=== PATIENT | male | born 1950 | race Caucasian/White ===

== ENCOUNTER 2017-06-19 09:31 | Inpatient (IN) | payer BC, OTHER ==
[2017-06-11 14:41] VITALS: BMI 27.0
--- NOTE | 2017-06-11 15:39 | PAT Medication Instructions ---
Service Date Jun 11, 2017. Current Home Medication List Acetaminophen (Tylenol), Unknown Dose PO UD PRN for Pain Amlodipine (Norvasc), 5 MG PO QAM Amphetamine-Dextroamphetamine 10MG (Adderall 10MG), 1-2 TAB PO UD B-Complex Vitamins (Vitamin B Complex), 1 TAB PO QAM Citalopram Hydrobromide (Celexa), 10 MG PO HS Citalopram Hydrobromide (Celexa), 20 MG PO QAM Clonazepam (Klonopin), 1 MG PO QAM Dicyclomine Hcl (Dicyclomine Hcl), 1 CAP PO BID Duloxetine HCl (Cymbalta), 1 CAP PO QPM Duloxetine Hcl (Cymbalta), 60 MG PO QAM Hydrocodone/Acetaminophen 5MG/325MG ([place] 5MG/325MG), 1 TABLET PO UD PRN for Pain Ibuprofen (Motrin), Unknown Dose PO UD PRN for Pain Lisinopril (Zestril), Unknown Dose PO QAM Lorazepam (Lorazepam), Unknown Dose UD PRN for ANXIETY Lurasidone Hcl (Latuda), 10 MG PO QAM Naproxen (Naprosyn), 500 MG PO PRN PRN for Pain Omeprazole (Prilosec), Unknown Dose PO QAM Ondansetron (Ondansetron HCl), 1 TAB PO UD PRN for Diarrhea Simvastatin (Simvastatin), 1 TAB PO HS Tamsulosin Hcl (Flomax), 0.4 MG PO QAM [Vitamin B Infusion], 1 DOSE INJ UD Medication Instructions For Your Scheduled Surgery -Contact your surgeon for instructions for: Ibuprofen (Motrin), Unknown Dose PO UD PRN for Pain Naproxen (Naprosyn), 500 MG PO PRN PRN for Pain -Continue as directed: [Vitamin B Infusion], 1 DOSE INJ UD - Hold the following medications the morning of surgery: Lisinopril (Zestril), Unknown Dose PO QAM B-Complex Vitamins (Vitamin B Complex), 1 TAB PO QAM Amphetamine-Dextroamphetamine 10MG (Adderall 10MG), 1-2 TAB PO UD Dicyclomine Hcl (Dicyclomine Hcl), 1 CAP PO BID - Take the following medications the morning of surgery with a sip of water: Tamsulosin Hcl (Flomax), 0.4 MG PO QAM Omeprazole (Prilosec), Unknown Dose PO QAM Lurasidone Hcl (Latuda), 10 MG PO QAM Lorazepam (Lorazepam), Unknown Dose UD PRN for ANXIETY (if needed) Ondansetron (Ondansetron HCl), 1 TAB PO UD PRN for Diarrhea (if needed) Amlodipine (Norvasc), 5 MG PO QAM Duloxetine Hcl (Cymbalta), 60 MG PO QAM Citalopram Hydrobromide (Celexa), 20 MG PO QAM Clonazepam (Klonopin), 1 MG PO QAM Hydrocodone/Acetaminophen 5MG/325MG ([place] 5MG/325MG), 1 TABLET PO UD PRN for Pain (if needed, can be taken up to four hours before surgery) Acetaminophen (Tylenol), Unknown Dose PO UD PRN for Pain (if needed, can be taken up to four hours before surgery) - Take the following medications as scheduled the night before surgery: Ondansetron (Ondansetron HCl), 1 TAB PO UD PRN for Diarrhea (if needed) Simvastatin (Simvastatin), 1 TAB PO HS Citalopram Hydrobromide (Celexa), 10 MG PO HS Duloxetine HCl (Cymbalta), 1 CAP PO QPM Dicyclomine Hcl (Dicyclomine Hcl), 1 CAP PO BID Hydrocodone/Acetaminophen 5MG/325MG ([place]aw 5MG/325MG), 1 TABLET PO UD PRN for Pain (if needed) Acetaminophen (Tylenol), Unknown Dose PO UD PRN for Pain (if needed) Amphetamine-Dextroamphetamine 10MG (Adderall 10MG), 1-2 TAB PO UD If you have any questions please call us at [phone] or [phone] or [phone]
[2017-06-11 16:38] LABS: BASO % 0.1 %; BASO ABS # 0.01 K/uL (0-0.2); EOS % 0.7 %; EOS ABS # 0.08 K/uL (0-0.5); HEMATOCRIT 43.7 % (42-52); HEMOGLOBIN 15.8 g/dL (14.0-18.0); IG# 0.05 K/uL (0.00-0.02); LYMPH % 12.1 %; LYMPH ABS # 1.34 K/uL (1.2-3.4); MEAN CELL VOLUME 90.7 fL (80-100); MEAN CORPUSCULAR HEMOGLOBIN 32.8 pg (25-34); MEAN CORPUSCULAR HGB CONC 36.2 g/dl (32-36); MEAN PLATELET VOLUME 8.3 fL (7.4-10.4); MONO % 7.8 %; MONO ABS # 0.87 K/uL (0.11-0.59); NEUT % 78.8 %; NEUT ABS # 8.74 K/uL (1.4-6.5); PLATELET COUNT 322 K/uL (130-400); RED CELL DISTRIBUTION WIDTH CV 13.5 % (11.5-14.5); RED CELL DISTRIBUTION WIDTH SD 44.7 fL (36.4-46.3); WHITE BLOOD COUNT 11.09 K/uL (4.8-10.8)
[2017-06-11 16:46] LABS: CREATININE 0.74 mg/dl (0.60-1.40); POTASSIUM 4.2 mmol/L (3.5-5.1)
--- NOTE | 2017-06-11 16:52 | DIAGNOSTIC IMAGING REPORT ---
CHEST 2 VIEWS ROUTINE CLINICAL HISTORY: Preoperative chest COMPARISON STUDY: No previous studies for comparison. FINDINGS: The cardiac and mediastinal contours are normal. There is no evidence of focal pulmonary consolidation. There is no evidence of failure. No pleural effusions are visualized.[ The patient appears mildly hyperinflated. IMPRESSION: No active disease in the chest. Electronically signed by: Laci Hernández M.D. 06/11/2017 4:51 PM Dictated Date/Time: 06/11/2017 4:50 PM
[2017-06-19] VITALS (7 sets, daily range): BP systolic 106–143; BP diastolic 70–80; PULSE 82–98; TEMP 36.5–36.8; O2SAT 91–97; Ht 165.1 cm; Wt 74.4 kg
[~2017-06-19] VITALS: Ht 165.1 cm; Wt 74.4 kg
[~2017-06-19 09:31] MED LIST: ACET-1256 PO; AMLO-110 PO; AMPH10TA2 PO; ATV1; B-COTAB18 PO; CEFAZOLIN 1000MG IV PUSH 7.5 ML IV SCH; CITA10TA8 PO; CITA20TA9 PO; CLON1TAB3 PO; DICY10CA12 PO; DULO-24 PO; DULO60CA44 PO; HYDR-5688 PO; IBUP-1450 PO; LACTATED RINGER'S 1000ML 1,000 ML IV SCH; LISI-461 PO; LURA40TA PO; NAPR-1169 PO; ONDA4TAB9 PO; PRLSR20 PO; TAMS0.4C38 PO; ZCR20 PO; [UNRECOGNIZED DRUG - OTHER] INJ
[2017-06-19] MEDS ORDERED: MIDAZOLAM HCL 1 MG/ML 2ML VIAL ONE (09:47)
[2017-06-19] MEDS ORDERED: FENTANYL CITRATE INJ 50 MCG/1 ML 2 ML VIAL ONE ×5 (09:47→13:41)
--- NOTE | 2017-06-19 10:14 | History & Physical Bridge Note ---
H&P Re-Evaluation Bridge Note: I have examined the patient, reviewed the History & Physical and in the interval since the performance of the History & Physical I have noted the following changes of clinical significance: No changes noted
--- NOTE | 2017-06-19 10:15 | History and Physical ---
History & Physical Date Jun 19, 2017. Chief Complaint Back and leg pain History of Present Illness The patient is a 66 year old male with complaints of back and leg pain Additional History Hepatic Disease: No Endocrine Disorder: No Kidney Disease: No Hypertension: Yes Heart Disease: No Bleeding Tendencies: No Infectious Diseases: No Allergies Coded Allergies: No Known Allergies (Unverified , 06/19/17) Home Medications Scheduled Amlodipine (Norvasc), 5 MG PO QAM Amphetamine-Dextroamphetamine 10MG (Adderall 10MG), 1-2 TAB PO UD B-Complex Vitamins (Vitamin B Complex), 1 TAB PO QAM Citalopram Hydrobromide (Celexa), 10 MG PO HS Citalopram Hydrobromide (Celexa), 20 MG PO QAM Clonazepam (Klonopin), 1 MG PO QAM Dicyclomine Hcl (Dicyclomine Hcl), 1 CAP PO BID Duloxetine HCl (Cymbalta), 1 CAP PO QPM Duloxetine Hcl (Cymbalta), 60 MG PO QAM Lisinopril (Zestril), Unknown Dose PO QAM Lurasidone Hcl (Latuda), 10 MG PO QAM Omeprazole (Prilosec), Unknown Dose PO QAM Simvastatin (Simvastatin), 1 TAB PO HS Tamsulosin Hcl (Flomax), 0.4 MG PO QAM [Vitamin B Infusion], 1 DOSE INJ UD Scheduled PRN Acetaminophen (Tylenol), Unknown Dose PO UD PRN for Pain Hydrocodone/Acetaminophen 5MG/325MG ([place] 5MG/325MG), 1 TABLET PO UD PRN for Pain Ibuprofen (Motrin), Unknown Dose PO UD PRN for Pain Lorazepam (Lorazepam), Unknown Dose UD PRN for ANXIETY Naproxen (Naprosyn), 500 MG PO PRN PRN for Pain Ondansetron (Ondansetron HCl), 1 TAB PO UD PRN for Diarrhea Physical Examination Skin: warm/dry, no rash Eyes: normal inspection, EOMI, sclerae normal ENT: normal ENT inspection, pharynx normal Head: normocephalic, atraumatic Neck: supple, no adenopathy, trachea midline Respiratory/Chest: lungs clear, normal breath sounds, no respiratory distress Cardiovascular: regular rate, rhythm, no edema, no murmur Abdomen / GI: normal bowel sounds, non tender Back: normal inspection Extremities: normal inspection, normal range of motion Neurologic/Psych: no motor/sensory deficits, alert, normal reflexes, oriented x 3 Diagnosis Lumbar spinal stenosis Plan of Treatment L3 to S1 decompression and fusion
[2017-06-19] MEDS ORDERED: BUPIVACAINE/EPINEPHRINE 0.5% MPF 1:200,000 30 ML VIAL ONE (10:26)
[2017-06-19] MEDS ORDERED: BACITRACIN 50000 UNIT VIAL ONE (10:26)
[2017-06-19] MEDS ORDERED: HYDROmorphone INJ 2 MG/ML SYR/VIAL ONE ×3 (11:00→13:40)
[2017-06-19] MEDS ORDERED: ALBUMIN HUMAN 5% 12.5 GM/250 ML VIAL IV ONE (11:43)
[2017-06-19] MEDS ORDERED: FENTANYL CITRATE INJ 50 MCG/1 ML 2 ML VIAL IV PRN (11:45)
[2017-06-19] MEDS ORDERED: PROMETHAZINE HCL INJ 6.25 MG in SODIUM CHLORIDE 0.9% 50ML 50 ML IV PRN (11:45)
[2017-06-19] MEDS ORDERED: EpHEDrine SULFATE INJ 50 MG/ML AMP IV PRN (11:45)
[2017-06-19] MEDS ORDERED: HYDROmorphone INJ 1 MG/ML SYR IV PRN (11:45)
[2017-06-19] MEDS ORDERED: ATROPINE SULFATE 0.1 MG/ML 5ML SYR IV PRN (11:45)
[2017-06-19] MEDS ORDERED: ONDANSETRON INJ 2 MG/ML 2 ML VIAL IV PRN ×2 (11:45→13:45)
[2017-06-19] MEDS ORDERED: FLOSEAL HEMOSTATIC MATRIX 10ML TOP ONE (13:23)
[2017-06-19] MEDS ORDERED: SODIUM CHLORIDE 0.9% 1000ML 1,000 ML IV SCH (13:31)
[2017-06-19] MEDS: SODIUM CHLORIDE 0.9% 1000ML 1,000 ML IV SCH (13:31)
--- NOTE | 2017-06-19 13:31 | [facility] Operative Report ---
Operative Report Operative Date Jun 19, 2017. Pre-Operative Diagnosis Lumbar spinal stenosis Post-Operative Diagnosis Lumbar spinal stenosis Procedure(s) Performed #1 lumbar decompression medial facetectomies foraminotomies L2-3 L3 4 L4 5 L5-S1. #2 posterior spinal fusion L3 4 L4 5 L5-S1. #3 placement of posterior segmental instrumentation L3 to S1. #4 interbody fusion L5-S1. #5 placed the peek cage 10 x 22 mm L5-S1. #6 placement of locally harvested morcellized autograft in the posterior lateral gutters. #7 placement he's got sponge, master graft in the posterior lateral gutters and osteal and bone graft in the interbody space. Surgeon Dr. Devon Hartley Speech Language Assistant Surgeon(s) Nicole Damon PA-C Estimated Blood Loss 450 ml Findings Severe spinal stenosis with hemorrhagic facet cyst Specimens No pathology specimens per surgeon Anesthesia Type General Description of Procedure Patient was met with preoperatively case discussed all questions addressed. After informed consent obtained patient was taken to the operative suite underwent intubation and placed in a prone position on the Carlos table on top Anselmo frame. All bony prominences were well-padded the eyes were inspected to ensure no external pressure placed upon them. This point the lumbar spine was prepped and draped in the normal sterile fashion. Sharp dissection with the assistance of Bovie cautery was performed out to and exposing the lamina and transverse processes of L3 L4 L5 and a circular bilaterally. From a caudal to cephalad fashion a complete laminectomy of L5 L4 L3 and partial laminectomy of L2 was performed addressing severe spinal stenosis. This included massive hemorrhagic facet cyst at 51 on the right as well as severe foraminal disease. After this complete pedicle screws were placed in L3-L4 L5-S1 levels bilaterally with the assistance of fluoroscopy and the properly sized derick placed. Through a transforaminal approach on the right a complete discectomy of L5-S1 was performed and placed created to subcortical bleeding bone and a 10 x 22 mm peek cage filled with osteal bone graft In position. Rods were then locked in the final position bilaterally. A cross-link was locked into position. The transverse processes of L3 L4-L5 and S1 levels were burred to subcortical bleeding bone. Infuse collagen sponge master graft locally harvested morselized autograph was placed in the posterior lateral gutters. 15 round NICKIE drain inserted. Incision was then closed with 1 Vicryl in the fascia 2 -0 Vicryl subcutaneous tensely 4-0 Monocryl for final skin closure Steri-Strips dressings placed. Patient was taken to the PACU stable condition. Please note Nicole Damon was present for the entire procedure involved in patient positioning complex portions of the surgery and final skin closure. I attest to the content of the Intraoperative Record and any orders documented therein. Any exceptions are noted below.
[2017-06-19] MEDS ORDERED: ONDANSETRON INJ 2 MG/ML 2 ML VIAL ONE ×2 (13:39→13:45)
[2017-06-19] MEDS ORDERED: LIDOCAINE HCL 2% 2 ML VIAL (20MG/ML) ONE (13:39)
[2017-06-19] MEDS ORDERED: ROCURONIUM BROMIDE 10 MG/ML 5 ML VIAL IV ONE (13:39)
[2017-06-19] MEDS ORDERED: PROPOFOL IV EMULSION 10 MG/ML 20 ML VIAL IV ONE (13:39)
[2017-06-19] MEDS ORDERED: DEXAMETHASONE SOD INJ 4 MG/ML VIAL ONE (13:39)
[2017-06-19] MEDS ORDERED: DO NOT ADMINISTER PNEUMOCOCCAL VACCINE PRN (13:45)
[2017-06-19] MEDS ORDERED: BISACODYL 10 MG SUPP PR PRN (13:45)
[2017-06-19] MEDS ORDERED: ALUMINUM/MAGNESIUM SUSP 30 ML UDC PO PRN (13:45)
[2017-06-19] MEDS ORDERED: PROMETHAZINE HCL INJ 12.5 MG in SODIUM CHLORIDE 0.9% 50ML 50 ML IV PRN (13:45)
[2017-06-19] MEDS ORDERED: FAMOTIDINE 20 MG TAB PO PRN (13:45)
[2017-06-19] MEDS ORDERED: ACETAMINOPHEN IV 100 ML IV PRN (13:45)
[2017-06-19] MEDS ORDERED: HYDROmorphone HCL 0.5MG/ML 50 ML CASSETTE IV PRN (13:45)
[2017-06-19] MEDS ORDERED: LORAZEPAM 0.5 MG TAB PO PRN (13:45)
[2017-06-19] MEDS ORDERED: NEOSTIGMINE METHYLSULFATE 1 MG/ML 10ML VIAL ONE (13:45)
[2017-06-19] MEDS ORDERED: GLYCOPYRROLATE INJ 0.2 MG/ML VIAL ONE (13:45)
[2017-06-19] MEDS ORDERED: DO NOT ADMINISTER FLU VACCINE PRN (13:45)
[2017-06-19] MEDS ORDERED: ACETAMINOPHEN 500 MG TAB PO PRN (13:45)
[2017-06-19] MEDS ORDERED: NALOXONE HCL 0.4 MG/1 ML VIAL/CARP IV PRN ×2 (13:45)
[2017-06-19] MEDS ORDERED: SOD PHOSPHATE/SOD BIPHOSPHATE ENEMA 132 ML BTL PR PRN (13:45)
[2017-06-19] MEDS ORDERED: EpHEDrine SULFATE 50MG/5ML SYR ONE (13:45)
[2017-06-19] MEDS ORDERED: hydrOXYzine HCL 25 MG TAB PO PRN (13:45)
[2017-06-19] MEDS ORDERED: KETOROLAC TROMETHAMINE 30 MG/ML VIAL ONE (13:45)
[2017-06-19] MEDS ORDERED: MAGNESIUM HYDROXIDE SUSP 30 ML UDC PO PRN (13:45)
[2017-06-19] MEDS ORDERED: LORAZEPAM INJ 0.5 MG in SYRINGE 0 ML IV PRN (13:45)
[2017-06-19] MEDS ORDERED: CEFAZOLIN IV 2,000 MG in DEXTROSE 5% 50ML 50 ML IV SCH (13:45)
[2017-06-19] MEDS ORDERED: METOCLOPRAMIDE HCL INJ 5 MG/ML 2 ML VIAL IV PRN (13:45)
--- NOTE | 2017-06-19 13:48 | DIAGNOSTIC IMAGING REPORT ---
LUMBAR SPINE 2 OR 3 VIEW CLINICAL HISTORY: 66 years-old Male presenting with L3-S1 DECOMP AND FUSION. TECHNIQUE: 3 fluoroscopic spot image(s) obtained as part of an intraoperative procedure. COMPARISON: None. FINDINGS/IMPRESSION: Postsurgical changes of L3-S1 posterior fusion and laminectomies. Interbody spacer noted at L5-S1. Normal lordosis though there is significant levocurvature of the lumbar spine centered at L3-4. Please see surgical report for further details. Fluoroscopy dosage (mGy): 25.15. Fluoroscopy time: 32.9 seconds. Number of fluoroscopic spot images: 3. Electronically signed by: Emre Lopez M.D. 06/19/2017 1:47 PM Dictated Date/Time: 06/19/2017 1:45 PM
[2017-06-19] MEDS ORDERED: HYDROmorphone HCL 0.5MG/ML 50 ML CASSETTE ONE (14:05)
--- NOTE | 2017-06-19 16:09 | Anesthesiology Progress Note ---
Anesthesia Post Op Note Date & Time Jun 19, 2017 at 16:08 Vital Signs Pain Intensity: 0 Vital Signs Past 12 Hours Date Time Temp Pulse Resp B/P (MAP) Pulse Ox O2 Delivery O2 Flow Rate FiO2 06/19/17 16:03 36.8 93 18 121/74 (90) 93 Nasal Cannula 06/19/17 15:15 36.2 96 17 119/64 93 Nasal Cannula 4 06/19/17 15:05 88 15 107/72 92 Nasal Cannula 4 06/19/17 14:55 89 14 96/72 (80) 92 Nasal Cannula 4 06/19/17 14:45 95 12 107/66 93 Nasal Cannula 4 06/19/17 14:35 85 13 106/59 97 Oxymask 6 06/19/17 14:25 83 13 105/65 97 Oxymask 10 06/19/17 14:15 84 13 91/63 (76) 98 Oxymask 10 06/19/17 14:05 36.4 87 14 120/71 98 Oxymask 10 06/19/17 09:59 36.6 82 20 143/79 97 Room Air Notes Mental Status: alert / awake / arousable, participated in evaluation Pt Amnestic to Procedure: Yes Nausea / Vomiting: adequately controlled Pain: adequately controlled Airway Patency, RR, SpO2: stable & adequate BP & HR: stable & adequate Hydration State: stable & adequate Anesthetic Complications: no major complications apparent
[2017-06-19] MEDS ORDERED: NURSING DECISION MEDICATION ORDER SCH (18:15)
[2017-06-19] MEDS: CEFAZOLIN IV 2,000 MG in SYRINGE 0 ML IV SCH (18:46)
[2017-06-19] MEDS ORDERED: LURA1TAB PO (19:49)
[2017-06-19] MEDS ORDERED: LISI-461 PO (19:49)
[2017-06-19] MEDS ORDERED: OMEP20CA9 PO (19:49)
[2017-06-19] MEDS ORDERED: GABAPENTIN 600 MG TAB PO SCH (20:00)
[2017-06-19] MEDS ORDERED: LORAZEPAM 1 MG TAB PO PRN (20:00)
[2017-06-19] MEDS ORDERED: GABAPENTIN 1200MG LOADING DOSE PO ONE (20:30)
[2017-06-19] MEDS: DOCUSATE SODIUM/SENNA 50/8.6MG TAB PO SCH (20:44)
[2017-06-19] MEDS: SIMVASTATIN 20 MG TAB PO SCH (20:44)
[2017-06-19] MEDS: CITALOPRAM 20 MG TAB PO SCH (20:45)
[2017-06-19] MEDS: DULOXETINE HCL 20 MG CAP PO SCH (20:45)
[2017-06-19] MEDS ORDERED: DICYCLOMINE HCL 10 MG CAP PO SCH (21:00)
[2017-06-19] MEDS ORDERED: MULTI-VITAMIN INFUSION INJ 10 ML, THIAMINE HCL INJ 100 MG, FoLIC ACID INJ 1 MG in SODIU... IV ONE (21:15)
--- NOTE | 2017-06-19 22:46 | Medical Consult ---
Consultation Date of Consultation: Jun 19, 2017. Attending Physician: Devon Hartley D.O. Reason for Consultation: Medical management History of Present Illness Pt is 66 y/o M with PMH anxiety, depression, bipolar, ADHD, GERD, BPH, HTN, dysplipidemia, ETOH use is seen in medical consultation s/p lumbar decompression and spinal fusion L2-S1 by Dr Hartley today for spinal stenosis. Pt states some back pain post op. Has Panda in place. No BM since surgery, reports has had some flatulence. Denies any numbness or tingling of extremities. Is ready to get out of bed. Pt follows with psychiatrist in [place] and states mood been stable past couple of months. Reports chronic anxiety, but doesn't feel worse and not feeling overly anxious at this time. Denies suicidal ideations. Hx hepatitis C antibody and followed with GI and reports completing thiamine deficiency treatment. Pt drinks 6 beers daily. Last drink last night. He ate dinner tonight and denies any N/V. Denies any tremors, HEALY, palpitations, fever/chills, diaphoresis, HEALY, dizziness, syncope, vision changes, neck pain, CP, SOB, orthopnea, cough, choking, abdominal pain, extremity edema, rashes, seizure like activity, hallucinations. Past Medical/Surgical History Medical Problems: (1) ADHD Status: Chronic (2) Anxiety Status: Chronic (3) Bipolar disorder Status: Chronic (4) BPH (benign prostatic hyperplasia) Status: Chronic (5) Depression Status: Chronic (6) Dyslipidemia Status: Chronic (7) GERD (gastroesophageal reflux disease) Status: Chronic (8) HTN (hypertension) Status: Chronic Surgical Problems: (1) Hx of carpal tunnel repair Status: Resolved (2) Hx of rotator cuff surgery Status: Resolved Family History Depression Diabetes mellitus FH: CAD (coronary artery disease) Social History Smoking Status: Current Every Day Smoker (1ppd day currently, previous 2ppd x 40 years) Smokeless Tobacco Use: No Alcohol Use: 6 beers daily Drug Use: marijuana Marital Status: in relationship Housing Status: lives with significant other Allergies Coded Allergies: No Known Allergies (Unverified , 06/19/17) Current Inpatient Medications Current Inpatient Medications Medications (Trade) Dose Ordered Sig/Shakira Route Start Time Stop Time Status Last Admin Dose Admin Promethazine HCl 12.5 mg/Sodium Chloride 50.5 ml @ 202 mls/hr Q6H PRN IV 06/19/17 13:45 07/19/17 13:44 Ondansetron HCl (Zofran Inj) 4 mg Q6H PRN IV 06/19/17 13:45 07/19/17 13:44 Metoclopramide HCl (Reglan Inj) 10 mg Q6H PRN IV 06/19/17 13:45 07/19/17 13:44 Lorazepam (Ativan Tab) 0.5 mg Q8H PRN PO 06/19/17 13:45 07/19/17 13:44 Lorazepam 0.5 mg/ Syringe 0.25 ml @ 1 mls/min Q8H PRN IV 06/19/17 13:45 07/19/17 13:44 Pneumococcal Polysaccharide Vaccine 1 ea PRN PRN N/A 06/19/17 13:45 07/19/17 13:44 Influenza Virus Vacc Triv Types A&B 1 ea PRN PRN N/A 06/19/17 13:45 07/19/17 13:44 Polyethylene (Miralax Powder Packet) 17 gm Q6 PO 06/21/17 06:00 07/21/17 05:59 Bisacodyl (Dulcolax Supp) 10 mg DAILY PRN [place] 06/19/17 13:45 07/19/17 13:44 Magnesium Hydroxide (Milk Of Magnesia Susp) 30 ml DAILY PRN PO 06/19/17 13:45 07/19/17 13:44 Hydromorphone HCl (Dilaudid Inj) 0.5-1mg prn moder... Q3H PRN IV 06/20/17 06:00 07/04/17 05:59 Oxycodone HCl (Roxicodone Immediate Rel Tab) 5-10mg prn moderate to sev... Q4H PRN PO 06/20/17 06:00 07/04/17 05:59 Sodium Chloride 1,000 ml @ 150 mls/hr Q6H40M IV 06/19/17 13:31 07/19/17 13:30 06/19/17 18:00 150 MLS/HR Acetaminophen (Tylenol Tab) 1,000 mg Q8H PRN PO 06/19/17 13:45 07/19/17 13:44 Acetaminophen 100 ml @ 400 mls/hr Q8H PRN IV 06/19/17 13:45 07/19/17 13:44 Naloxone HCl (Narcan Inj) 0.1 mg Q5M PRN IV 06/19/17 13:45 07/19/17 13:44 Senna/Docusate Sodium (Senokot S Tab) 2 tab HS PO 06/19/17 21:00 07/19/17 20:59 Sodium Biphosphate/ Sodium Phosphate (Fleet Enema) 132 ml ONE PRN [place] 06/19/17 13:45 07/19/17 13:44 Hydroxyzine HCl (Vistaril Tab) 25 mg Q8H PRN PO 06/19/17 13:45 07/19/17 13:44 Al Hydroxide/Mg Hydroxide (Maalox Susp) 30 ml Q6H PRN PO 06/19/17 13:45 07/19/17 13:44 Famotidine (Pepcid Tab) 20 mg Q12 PRN PO 06/19/17 13:45 07/19/17 13:44 Diphenhydramine HCl (Benadryl Cap) 25 mg Q6H PRN PO 06/19/17 13:45 07/19/17 13:44 Miscellaneous Information (Discontinue MANAGER GENERATION) 1 ea TODAY@0600 ONCE N/A 06/20/17 06:00 06/20/17 06:01 Naloxone HCl (Narcan Inj) 0.1 mg Q5M PRN IV 06/19/17 13:45 06/20/17 06:00 Hydromorphone HCl (Dilaudid Commercial Floor Covering Installer) 25 mg PRN PRN IV 06/19/17 13:45 06/20/17 06:00 Sodium Chloride 1,000 ml @ 15 mls/hr Q24H IV 06/19/17 13:31 06/20/17 06:00 Amlodipine Besylate (Norvasc Tab) 5 mg QAM PO 06/20/17 09:00 07/20/17 08:59 Citalopram Hydrobromide (celeXA TAB) 10 mg HS PO 06/19/17 21:00 07/19/17 20:59 Citalopram Hydrobromide (celeXA TAB) 20 mg QAM PO 06/20/17 09:00 07/20/17 08:59 Clonazepam (Klonopin Tab) 1 mg QAM PO 06/20/17 09:00 07/20/17 08:59 Dicyclomine HCl (Bentyl Cap) 10 mg BID PO 06/19/17 21:00 07/19/17 20:59 Duloxetine HCl (Cymbalta Cap) 20 mg QPM PO 06/19/17 21:00 07/19/17 20:59 Duloxetine HCl (Cymbalta Cap) 60 mg QAM PO 06/20/17 09:00 07/20/17 08:59 Lurasidone HCl (Latuda Tab) 10 mg QAM PO 06/20/17 09:00 07/20/17 08:59 Simvastatin (Zocor Tab) 20 mg HS PO 06/19/17 21:00 07/19/17 20:59 Tamsulosin HCl (Flomax Cap) 0.4 mg QAM PO 06/20/17 09:00 07/20/17 08:59 Cefazolin Sodium 2000 mg/Syringe 15 ml @ 3.75 mls/ min Q8H IV 06/19/17 19:00 06/20/17 03:03 06/19/17 18:46 3.75 MLS/MIN Lorazepam (Ativan Tab) 1 mg ONE PRN PO 06/19/17 20:00 Gabapentin (Neurontin Tab) 1,200 mg TODAY@2030 ONCE PO 06/19/17 20:30 06/19/17 20:31 Gabapentin (Neurontin Tab) 600 mg Q6H PO 06/20/17 02:00 06/20/17 08:01 Gabapentin (Neurontin Tab) 600 mg Q8H PO 06/20/17 16:00 06/21/17 08:01 Gabapentin (Neurontin Tab) 600 mg Q12H PO 06/21/17 20:00 06/22/17 08:01 Gabapentin (Neurontin Tab) 600 mg Q24H PO 06/22/17 20:00 06/22/17 20:01 Review of Systems See HPI for pertinent positives & negatives. All other systems reviewed and were otherwise negative Physical Exam Date Time Temp Pulse Resp B/P (MAP) Pulse Ox O2 Delivery O2 Flow Rate FiO2 06/19/17 18:38 36.7 98 18 127/75 (92) 91 Nasal Cannula 2.0 06/19/17 17:35 36.6 90 14 106/70 (82) 91 Nasal Cannula 4.0 06/19/17 16:35 36.5 87 18 110/73 (85) 94 Nasal Cannula 06/19/17 16:03 36.8 93 18 121/74 (90) 93 Nasal Cannula 06/19/17 15:35 36.6 98 14 114/75 (88) 93 Nasal Cannula 4.0 06/19/17 15:35 93 Nasal Cannula 4.0 06/19/17 15:35 93 Nasal Cannula 4.0 06/19/17 15:15 36.2 96 17 119/64 93 Nasal Cannula 4 06/19/17 15:05 88 15 107/72 92 Nasal Cannula 4 06/19/17 14:55 89 14 96/72 (80) 92 Nasal Cannula 4 06/19/17 14:45 95 12 107/66 93 Nasal Cannula 4 06/19/17 14:35 85 13 106/59 97 Oxymask 6 06/19/17 14:25 83 13 105/65 97 Oxymask 10 06/19/17 14:15 84 13 91/63 (76) 98 Oxymask 10 06/19/17 14:05 36.4 87 14 120/71 98 Oxymask 10 06/19/17 09:59 36.6 82 20 143/79 97 Room Air General Appearance: WD/WN, no apparent distress (sitting upright in bed) Head: normocephalic, atraumatic Eyes: normal inspection, PERRL, EOMI, sclerae normal ENT: hearing grossly normal, pharynx normal, + pertinent finding (mucous membranes moist) Neck: supple, no JVD, trachea midline Respiratory/Chest: chest non-tender, lungs clear, no respiratory distress Cardiovascular: regular rate, rhythm, no murmur, normal peripheral pulses Abdomen/GI: normal bowel sounds, non tender, soft Back: + pertinent finding (dressing in place without bloody discharge noted) Extremities/Musculoskelatal: normal capillary refill, no pedal edema, non- tender, + pertinent finding (pedal pushes and pulls intact bilaterally, sensation to light touch intact. pt with SCDs on) Neurologic/Psych: alert, oriented x 3, + pertinent finding (pt joking around, appears to be pleasant at this time) Skin: warm/dry Assessment & Plan Pt post op day# 0 S/P Lumbar decompression and fusion L2-S1 by Dr Hartley Pt doing well with pain control post-op. -pain management per ortho -wound management per ortho -PT/OT as appropriate -DVT prophylaxis per ortho -incentive spirometry -monitor H&H for acute blood loss anemia ETOH Use Drinks 6 beers daily, last drink last evening. No signs withdrawal at this time -banana bag -ETOH withdrawal protocol -close monitoring Anxiety/Depression/Bipolar/ADHD Pt follows with psychiatrist. Stable at this time -continue Celexa, Cymbalta, Latuda GERD -continue PPI -continue Bentyl prn HTN stable at this time -continue lisinopril, amlodipine Hyperlipidemia -continue simvastatin BPH -continue flomax DVT Prophylaxis -per ortho Disposition admit med/surg Full Code as per discussion with pt Follows with Dr Constanza Arteaga for routine care Pt was seen with Dr Tinoco. See addendum ATTENDING ADDENDUM ; pt seen and examined , care co cordinated with Sarah Valderrama PA-C 66 yo M with hx of ETOH abuse, chronic back pain , underwent multi level spinal decompression and fusion surgery by Dr Hartley recovering well post op denies of any discomfort pt drinks ~6 pk beer a day , past drink was yesterday started with ETOH withdrawal protocol with gabapentin , lorazepam IV Banana bag monitor for sign of withdrawal/DT at present vitals remains stable low threshold to tx to PCU or higher level of care with any S/S of active withdrawal ( tachycardia /Tremor /anxiety /agitation or hypertensive episode ) Hyponatremia : possible due to chronic ETOH abuse IVF with NSS after Banana bag infused repeat BMP in AM pt will benefit with ETOH rehab , social service consulted Socorro Tinoco MD Additional Copies To Constanza Arteaga D.O.
[2017-06-20] VITALS (7 sets, daily range): BP systolic 105–121; BP diastolic 61–78; PULSE 66–78; TEMP 36.4–36.8; O2SAT 91–98
[2017-06-20] MEDS: SODIUM CHLORIDE 0.9% 1000ML 1,000 ML IV SCH ×4 (01:02→21:30)
[2017-06-20] MEDS: GABAPENTIN 600MG Q6H DOSE PO SCH ×2 (01:59→07:59)
[2017-06-20] MEDS: CEFAZOLIN IV 2,000 MG in SYRINGE 0 ML IV SCH (02:49)
[2017-06-20 05:33] LABS: EOS % 0.1 %; EOS ABS # 0.01 K/uL (0-0.5); HEMATOCRIT 32.7 % (42-52); HEMOGLOBIN 11.3 g/dL (14.0-18.0); IG# 0.03 K/uL (0.00-0.02); LYMPH % 6.8 %; LYMPH ABS # 0.82 K/uL (1.2-3.4); MEAN CELL VOLUME 92.4 fL (80-100); MEAN CORPUSCULAR HEMOGLOBIN 31.9 pg (25-34); MEAN CORPUSCULAR HGB CONC 34.6 g/dl (32-36); MONO % 6.6 %; MONO ABS # 0.79 K/uL (0.11-0.59); NEUT % 86.3 %; NEUT ABS # 10.36 K/uL (1.4-6.5); PLATELET COUNT 230 K/uL (130-400); RED CELL DISTRIBUTION WIDTH CV 13.5 % (11.5-14.5); RED CELL DISTRIBUTION WIDTH SD 45.3 fL (36.4-46.3); WHITE BLOOD COUNT 12.01 K/uL (4.8-10.8)
[2017-06-20 05:59] LABS: ALT/SGPT 27 U/L (12-78); AST/SGOT 25 U/L (15-37); BLOOD UREA NITROGEN 7 mg/dl (7-18); CALCIUM 7.6 mg/dl (8.5-10.1); CARBON DIOXIDE 27 mmol/L (21-32); GLUCOSE 115 mg/dl (70-99); LIPASE 111 U/L (73-393); POTASSIUM 4.3 mmol/L (3.5-5.1); SODIUM 135 mmol/L (136-145)
[2017-06-20] MEDS ORDERED: DC PCA ONE (06:00)
[2017-06-20] MEDS ORDERED: HYDROmorphone INJ 0.5 MG/0.5 ML SYR IV PRN (06:00)
[2017-06-20 06:04] LABS: ALKALINE PHOSPHATASE 47 U/L (45-117); CHOLESTEROL 130 mg/dl (0-200); LDL CHOLESTEROL CALCULATED 71 mg/dl; TOTAL PROTEIN 5.6 gm/dl (6.4-8.2)
--- NOTE | 2017-06-20 07:53 | Clinical Documentation Query ---
BRANDO Ram : CLINICAL DOCUMENTATION QUERY Patient is a 66 year old male who on 06/19 underwent posterior lumbar decompression and fusion. Preoperative H&H was 15.8 g/dl and 43.7%. POD #1, repeat values are 11.3 g/dl and 32.7%. Total blood loss to date equals 1,050 ml's. Additionally, net I/O is positive for approximately 2,000 ml's. He is being monitored with serial hematology and I/O including drain outputs. In your clinical opinion is this patient being managed for: ( ) Acute blood loss and hemodilutional anemia ( ) Not Agree ( ) Other explanation of clinical findings (Please Explain) ( ) Unable to determine (Please Define) ( ) Need to Discuss The medical record reflects the following clinical findings, treatment, and risk factors. Clinical Indicators: As above Treatment: He is being monitored with serial hematology and I/O including drain outputs. Risk Factors: Acute perioperative blood losses and IVF administration Please clarify and document your clinical opinion in the progress notes and discharge summary. Terms such as "probable", "suspected", "likely", "questionable", "possible", or "still to be ruled out" are acceptable. IF IN AGREEMENT, YOU MUST DOCUMENT ABOVE DIAGNOSTIC STATEMENT IN DAILY PROGRESS NOTES AND DISCHARGE SUMMARY. This document is not part of the patient's record. Thank You, Jesús Livingston RN [phone]
[2017-06-20] MEDS: TAMSULOSIN HCL 0.4 MG CAP PO SCH (07:59)
[2017-06-20] MEDS: DULOXETINE HCL 60 MG CAP PO SCH (08:00)
[2017-06-20] MEDS: CITALOPRAM 20 MG TAB PO SCH ×2 (08:00→21:42)
[2017-06-20] MEDS: LISINOPRIL 10 MG TAB PO SCH (08:00)
[2017-06-20] MEDS: AMLODIPINE BESYLATE 5 MG TAB PO SCH (08:01)
[2017-06-20] MEDS: PANTOprazole SOD 40 MG TAB PO SCH (08:01)
[2017-06-20] MEDS: LURASIDONE HCL 40 MG TAB PO SCH (08:03)
[2017-06-20] MEDS: CLONAZEPAM 1 MG TAB PO SCH (08:09)
[2017-06-20] MEDS: OXYCODONE HCL IR 5 MG TAB (IMMEDIATE RELEASE) PO PRN ×4 (08:10→23:44)
[2017-06-20] MEDS ORDERED: LURASIDONE HCL 40 MG TAB PO SCH (09:00)
[2017-06-20] MEDS ORDERED: RXC5 PO (09:05)
--- NOTE | 2017-06-20 09:06 | Discharge Instructions ---
Discharge Instructions Date of Service Jun 20, 2017. Admission Reason for Admission: Spinal Stenosis Discharge Discharge Diagnosis / Problem: lumbar stenosis Discharge Goals Goal(s): Improve function Activity Recommendations Activity Limitations: per Instructions/Follow-up section . Instructions / Follow-Up Instructions / Follow-Up ACTIVITY RECOMMENDATIONS: SELF CARE INSTRUCTIONS AFTER THORACIC/LUMBAR FUSIONS 1. You may walk to your tolerance. It is good exercise for your legs and back. Expect some back and intermittent leg aches and pains. 2. You may perform "counter-top" level activities (make a sandwich, maricarmen with a project, etc.). 3. No bending or lifting of more than 10 pounds or back twisting of any nature (roll like a log when turning in bed). 4. You may ride in a car for 20-30 minutes at a time. No driving until after your first visit with your doctor. 5. Frequent changes of position and restricting sitting to 30 minutes at a time will help limit the amount of back spasms and stiffness you may experience. 6. You may discontinue the use of ambulatory aids (cane, crutches, etc.) once your strength and confidence allow. 7. You may rubber tubing backer the shower and let water strike your incision when you arrive home at least once daily. Do not take a tub bath, sit in a hot tub or go into a swimming pool until after your first recheck in the office. SPECIAL CARE INSTRUCTIONS: VERY IMPORTANT TO READ AND REVIEW A. Your surgical incision has been closed with a cosmetic suture under the skin that will dissolve in about 6 weeks. In 14 days, you can use a pair of clean scissors and cut the suture that is left outside of the skin at the ends of your incision. 1. The small skin tapes can be removed 7 days after surgery if they have not fallen off by that point. 2. You may keep the wound open to air as much as possible to promote healing after post-op day number 5 unless told otherwise by your doctor. 3. If you think the wound looks like it is becoming infected (redness or worsening drainage) and/or you are experiencing fever, chill or worsening back pain and muscle spasms, contact the office so that we may evaluate you as soon as possible. B. Complications are uncommon, but please contact us if you have any signs or symptoms of: 1. wound infection (fever higher than 102.5 degrees F, redness, separation of wound, drainage, or increasing pain from the incision) 2. blood clots in legs (pain, swelling, redness and warmth in legs) 3. urinary tract infection (fever higher than 102.5 degrees F, burning upon urination or increased frequency of urination) 4. nerve problems (inability to walk on your toes or heels, numbness, loss of bowel or bladder control) 5. any other symptoms that concern you C. Please call the office at if you have any concerns or questions about your operation or recovery. D. No smoking! Smoking drastically decreases the chance of a solid fusion. E. Do not take any anti-inflammatory medications (Indocin, Advil, Motrin, Aspirin, Naprosyn, etc.) as these may inhibit the chance of a solid fusion. Tylenol is okay to take for pain. MANAGING PAIN AFTER SPINAL SURGERY 1. Narcotic medication is intended for short-term use and will be provided for surgical pain. Surgical pain usually lasts for a period of 4-6 weeks. Narcotic medication includes Percocet, Vicodin, Darvocet, Tylenol #3 or Lortab. 2. Longer-term pain is more appropriately treated with non-narcotic medication such as Tylenol ES. 3. Muscle spasm is not appropriately treated with narcotics. Muscle relaxers such as Soma, Flexeril or Skelaxin can be used along with Tylenol ES. 4. Remember that we all live with some "aches and pains". This is not unusual or uncommon after an injury or as we get older. a. Back pain is expected and may include muscle spasms for 4 to 6 weeks after surgery. The pain should gradually improve. If the pain worsens for no apparent reason, please contact the office. b. Intermittent leg pain may also be experienced and should not be concerned about unless it worsens for no apparent reason. If so, please contact the office. 5. We will provide appropriate medication within the normal guidelines of their prescribed use. We will also be very cautious and aware of potential abuse and extended duration of patients' medication needs. a. Pain medications are for your comfort and to assist with sleep and rest so that the tissue can heal. They are not provided in order to return to normal activity and should not be used through the day. To do so or worsening pain at night can result from ongoing tissue damage and development of tolerance to the prescribed medicine. 6. Please allow 2-3 days to process refills. Prescriptions will not be mailed but must be picked up at the office. FOLLOW UP VISIT: Keep your scheduled follow-up appointment. Any questions, please call the office at . Current Hospital Diet Patient's current hospital diet: Regular Diet Discharge Diet Recommended Diet: Regular Diet Procedures Procedures Performed: #1 lumbar decompression medial facetectomies foraminotomies L2-3 L3 4 L4 5 L5-S1. #2 posterior spinal fusion L3 4 L4 5 L5-S1. #3 placement of posterior segmental instrumentation L3 to S1. #4 interbody fusion L5-S1. #5 placed the peek cage 10 x 22 mm L5-S1. #6 placement of locally harvested morcellized autograft in the posterior lateral gutters. #7 placement he's got sponge, master graft in the posterior lateral gutters and osteal and bone graft in the interbody space. Pending Studies Studies pending at discharge: no Laboratory Results Lipid Panel Test 06/20/17 05:04 Range/Units Triglycerides Level 72 0-150 mg/dl Cholesterol Level 130 0-200 mg/dl HDL Cholesterol 45 mg/dl Cholesterol/HDL Ratio 2.9 LDL Cholesterol, Calculated 71 mg/dl Medical Emergencies . Who to Call and When: Medical Emergencies: If at any time you feel your situation is an emergency, please call 911 immediately. . Non-Emergent Contact Non-Emergency issues call your: Primary Care Provider . "Provider Documentation" section prepared by Devon Hartley. . VTE Core Measure Inpt VTE Proph given/why not?: Krys Pearson, SCD's
--- NOTE | 2017-06-20 10:06 | Anesthesiology Progress Note ---
Anesthesia Post Op Note Date & Time Jun 20, 2017 at 10:06 Vital Signs Vital Signs Past 12 Hours Date Time Temp Pulse Resp B/P (MAP) Pulse Ox O2 Delivery O2 Flow Rate FiO2 06/20/17 07:20 Room Air 06/20/17 07:11 36.4 66 18 107/68 (81) 91 Room Air 06/20/17 06:00 94 Room Air 06/20/17 03:20 36.5 72 16 121/74 (90) 98 Nasal Cannula 2.0 06/20/17 00:10 Room Air 06/19/17 23:10 36.6 89 16 130/80 (97) 94 Room Air Notes Mental Status: alert / awake / arousable, participated in evaluation Pt Amnestic to Procedure: Yes Nausea / Vomiting: adequately controlled Pain: adequately controlled Airway Patency, RR, SpO2: stable & adequate BP & HR: stable & adequate Hydration State: stable & adequate Anesthetic Complications: no major complications apparent
--- NOTE | 2017-06-20 14:37 | Progress Note ---
Progress Note Date of Service Jun 20, 2017. Progress Note Patient is postop day #1. Back pain is controlled. Leg pain markedly improved. Vital signs stable. On exam he isn't chair at the bedside. Has good strength testing. Assessment status post lumbar decompression fusion. Plan at this time will continue physical therapy anticipate possible home tomorrow.
[2017-06-20] MEDS ORDERED: KETOROLAC TROMETHAMINE 15 MG/ML VIAL IV. PRN (14:45)
[2017-06-20] MEDS: GABAPENTIN 600MG Q8H DOSE PO SCH ×2 (15:27→23:44)
[2017-06-20] MEDS ORDERED: NURSING DECISION MEDICATION ORDER SCH (20:30)
--- NOTE | 2017-06-20 20:43 | Progress Note ---
Medicine Progress Note Date & Time of Visit: Jun 20, 2017 at 11:20 . Subjective Doing well postoperatively. No chest pain. No cough or dyspnea. No nausea or vomiting. Passing flatus, no stool. Panda removed this morning. No tremors, sweats, hallucinations. Postop pain well-controlled. . Objective Last 8 Hrs Date Time Temp Pulse Resp B/P (MAP) Pulse Ox O2 Delivery O2 Flow Rate FiO2 06/20/17 15:54 36.5 71 18 105/61 (76) 94 Room Air 06/20/17 15:30 94 Room Air Physical Exam: General- sitting in chair; no distress Lungs- clear to auscultation; no respiratory distress Cardiovascular- RRR; no murmur; no gallop; no JVD; no pretibial edema Abdomen- + bowel sounds, soft, nontender Extremities- no cyanosis; no calf tenderness Neuro- alert, oriented Skin- warm & dry . Laboratory Results: Last 24 Hours Test 06/20/17 01:27 06/20/17 05:04 Urine Opiates Screen POS Urine Methadone, Qualitative NEG Urine Barbiturates NEG Urine Phencyclidine (PCP) Level NEG Ur Amphetamine/Methamphetamine NEG MDMA (Ecstasy) Screen NEG Urine Benzodiazepines Screen POS Urine Cocaine Metabolite NEG Urine Marijuana (THC) POS White Blood Count 12.01 K/uL Red Blood Count 3.54 M/uL Hemoglobin 11.3 g/dL Hematocrit 32.7 % Mean Corpuscular Volume 92.4 fL Mean Corpuscular Hemoglobin 31.9 pg Mean Corpuscular Hemoglobin Concent 34.6 g/dl Platelet Count 230 K/uL Mean Platelet Volume 8.0 fL Neutrophils (%) (Auto) 86.3 % Lymphocytes (%) (Auto) 6.8 % Monocytes (%) (Auto) 6.6 % Eosinophils (%) (Auto) 0.1 % Basophils (%) (Auto) 0.0 % Neutrophils # (Auto) 10.36 K/uL Lymphocytes # (Auto) 0.82 K/uL Monocytes # (Auto) 0.79 K/uL Eosinophils # (Auto) 0.01 K/uL Basophils # (Auto) 0.00 K/uL RDW Standard Deviation 45.3 fL RDW Coefficient of Variation 13.5 % Immature Granulocyte % (Auto) 0.2 % Immature Granulocyte # (Auto) 0.03 K/uL Prothrombin Time 10.2 SECONDS Prothromb Time International Ratio 1.0 Sodium Level 135 mmol/L Potassium Level 4.3 mmol/L Chloride Level 104 mmol/L Carbon Dioxide Level 27 mmol/L Anion Gap 4.0 mmol/L Blood Urea Nitrogen 7 mg/dl Creatinine 0.70 mg/dl Est Creatinine Clear Calc Drug Dose 97.9 ml/min Estimated GFR () 114.0 Estimated GFR (Non- 98.3 BUN/Creatinine Ratio 10.2 Random Glucose 115 mg/dl Calcium Level 7.6 mg/dl Total Bilirubin 0.4 mg/dl Direct Bilirubin < 0.1 mg/dl Aspartate Amino Transf (AST/SGOT) 25 U/L Alanine Aminotransferase (ALT/SGPT) 27 U/L Alkaline Phosphatase 47 U/L Total Protein 5.6 gm/dl Albumin 3.0 gm/dl Triglycerides Level 72 mg/dl Cholesterol Level 130 mg/dl HDL Cholesterol 45 mg/dl LDL Cholesterol, Calculated 71 mg/dl VLDL Cholesterol, Calculated 14 mg/dl Cholesterol/HDL Ratio 2.9 Lipase 111 U/L Vitamin B12 Level 228 pg/mL Folate > 24.00 ng/mL Ethyl Alcohol mg/dL < 3.0 mg/dl Assessment & Plan S/P LUMBAR DECOMPRESSION / FUSION POD # 1 ALCOHOL CONSUMPTION Usually drinks 6 beers / day. No signs / symptoms of withdrawal. Continue gabapentin and lorazepam per protocol. BPH Continue tamsulosin. VTE PROPHYLAXIS Per Ortho protocol. Thank you for this consultation. We will follow the patient with you during their hospital stay. You can reach a member of the [facility] Medicine Team 04/12 via pager @ [phone]. You can reach me via cell @ [phone]. . Current Inpatient Medications: Current Inpatient Medications Medications (Trade) Dose Ordered Sig/Shakira Route Start Time Stop Time Status Last Admin Dose Admin Promethazine HCl 12.5 mg/Sodium Chloride 50.5 ml @ 202 mls/hr Q6H PRN IV 06/19/17 13:45 07/19/17 13:44 Ondansetron HCl (Zofran Inj) 4 mg Q6H PRN IV 06/19/17 13:45 07/19/17 13:44 Metoclopramide HCl (Reglan Inj) 10 mg Q6H PRN IV 06/19/17 13:45 07/19/17 13:44 Lorazepam (Ativan Tab) 0.5 mg Q8H PRN PO 06/19/17 13:45 07/19/17 13:44 Lorazepam 0.5 mg/ Syringe 0.25 ml @ 1 mls/min Q8H PRN IV 06/19/17 13:45 07/19/17 13:44 Pneumococcal Polysaccharide Vaccine 1 ea PRN PRN N/A 06/19/17 13:45 07/19/17 13:44 Influenza Virus Vacc Triv Types A&B 1 ea PRN PRN N/A 06/19/17 13:45 07/19/17 13:44 Polyethylene (Miralax Powder Packet) 17 gm Q6 PO 06/21/17 06:00 07/21/17 05:59 Bisacodyl (Dulcolax Supp) 10 mg DAILY PRN LA 06/19/17 13:45 07/19/17 13:44 Magnesium Hydroxide (Milk Of Magnesia Susp) 30 ml DAILY PRN PO 06/19/17 13:45 07/19/17 13:44 Hydromorphone HCl (Dilaudid Inj) 0.5-1mg prn moder... Q3H PRN IV 06/20/17 06:00 07/04/17 05:59 06/20/17 19:14 0.5 MG Oxycodone HCl (Roxicodone Immediate Rel Tab) 5-10mg prn moderate to sev... Q4H PRN PO 06/20/17 06:00 07/04/17 05:59 06/20/17 16:08 10 MG Acetaminophen (Tylenol Tab) 1,000 mg Q8H PRN PO 06/19/17 13:45 07/19/17 13:44 06/20/17 11:10 1,000 MG Acetaminophen 100 ml @ 400 mls/hr Q8H PRN IV 06/19/17 13:45 07/19/17 13:44 Naloxone HCl (Narcan Inj) 0.1 mg Q5M PRN IV 06/19/17 13:45 07/19/17 13:44 Senna/Docusate Sodium (Senokot S Tab) 2 tab HS PO 06/19/17 21:00 07/19/17 20:59 06/19/17 20:44 2 TAB Sodium Biphosphate/ Sodium Phosphate (Fleet Enema) 132 ml ONE PRN LA 06/19/17 13:45 07/19/17 13:44 Hydroxyzine HCl (Vistaril Tab) 25 mg Q8H PRN PO 06/19/17 13:45 07/19/17 13:44 Al Hydroxide/Mg Hydroxide (Maalox Susp) 30 ml Q6H PRN PO 06/19/17 13:45 07/19/17 13:44 Famotidine (Pepcid Tab) 20 mg Q12 PRN PO 06/19/17 13:45 07/19/17 13:44 Diphenhydramine HCl (Benadryl Cap) 25 mg Q6H PRN PO 06/19/17 13:45 07/19/17 13:44 Amlodipine Besylate (Norvasc Tab) 5 mg QAM PO 06/20/17 09:00 07/20/17 08:59 06/20/17 08:01 5 MG Citalopram Hydrobromide (celeXA TAB) 10 mg HS PO 06/19/17 21:00 07/19/17 20:59 06/19/17 20:45 10 MG Citalopram Hydrobromide (celeXA TAB) 20 mg QAM PO 06/20/17 09:00 07/20/17 08:59 06/20/17 08:00 20 MG Clonazepam (Klonopin Tab) 1 mg QAM PO 06/20/17 09:00 07/20/17 08:59 06/20/17 08:09 1 MG Duloxetine HCl (Cymbalta Cap) 20 mg QPM PO 06/19/17 21:00 07/19/17 20:59 06/19/17 20:45 20 MG Duloxetine HCl (Cymbalta Cap) 60 mg QAM PO 06/20/17 09:00 07/20/17 08:59 06/20/17 08:00 60 MG Simvastatin (Zocor Tab) 20 mg HS PO 06/19/17 21:00 07/19/17 20:59 06/19/17 20:44 20 MG Tamsulosin HCl (Flomax Cap) 0.4 mg QAM PO 06/20/17 09:00 07/20/17 08:59 06/20/17 07:59 0.4 MG Lorazepam (Ativan Tab) 1 mg ONE PRN PO 06/19/17 20:00 Gabapentin (Neurontin Tab) 600 mg Q8H PO 06/20/17 16:00 06/21/17 08:01 06/20/17 15:27 600 MG Gabapentin (Neurontin Tab) 600 mg Q12H PO 06/21/17 20:00 06/22/17 08:01 Gabapentin (Neurontin Tab) 600 mg Q24H PO 06/22/17 20:00 06/22/17 20:01 Lisinopril (Zestril Tab) 10 mg DAILY PO 06/20/17 09:00 07/20/17 08:59 06/20/17 08:00 10 MG Lurasidone HCl (Latuda Tab) 20 mg DAILY PO 06/20/17 09:00 07/20/17 08:59 06/20/17 08:03 20 MG Pantoprazole Sodium (Protonix Tab) 40 mg QAM PO 06/20/17 09:00 07/20/17 08:59 06/20/17 08:01 40 MG Sodium Chloride 1,000 ml @ 100 mls/hr Q10H IV 06/20/17 01:30 07/20/17 01:29 06/20/17 11:01 100 MLS/HR Ketorolac Tromethamine (Toradol Inj) 15 mg Q6H PRN IV. 06/20/17 14:45 06/25/17 14:44 Nicotine (Nicoderm Cq 21MG Patch) 1 patch QAM TD 06/21/17 09:00 07/21/17 08:59 Miscellaneous (Remove Nicoderm Patch) 1 ea HS N/A 06/20/17 23:00 07/20/17 22:59
[2017-06-20] MEDS: DULOXETINE HCL 20 MG CAP PO SCH (21:42)
[2017-06-20] MEDS: SIMVASTATIN 20 MG TAB PO SCH (21:42)
[2017-06-20] MEDS: DOCUSATE SODIUM/SENNA 50/8.6MG TAB PO SCH (21:42)
[2017-06-21 03:10] VITALS: BP 132/86; PULSE 83; TEMP 37; O2SAT 90
[2017-06-21] MEDS ORDERED: NURSING DECISION MEDICATION ORDER SCH (04:45)
[2017-06-21] MEDS: POLYETHYLENE (MIRALAX) 17 GM PACK PO SCH ×2 (05:41→13:31)
[2017-06-21] MEDS: OXYCODONE HCL IR 5 MG TAB (IMMEDIATE RELEASE) PO PRN ×2 (05:41→13:35)
[2017-06-21 06:57] VITALS: BP 123/73; PULSE 79; TEMP 36.8; O2SAT 90
[2017-06-21] MEDS: CLONAZEPAM 1 MG TAB PO SCH (07:34)
[2017-06-21] MEDS: PANTOprazole SOD 40 MG TAB PO SCH (07:35)
[2017-06-21] MEDS: TAMSULOSIN HCL 0.4 MG CAP PO SCH (07:35)
[2017-06-21] MEDS: LISINOPRIL 10 MG TAB PO SCH (07:35)
[2017-06-21] MEDS: DULOXETINE HCL 60 MG CAP PO SCH (07:35)
[2017-06-21] MEDS: AMLODIPINE BESYLATE 5 MG TAB PO SCH (07:35)
[2017-06-21] MEDS: GABAPENTIN 600MG Q8H DOSE PO SCH (07:36)
[2017-06-21] MEDS: LURASIDONE HCL 40 MG TAB PO SCH (07:36)
--- NOTE | 2017-06-21 07:53 | Discharge Summary ---
Orthopedic Discharge Summary Admission Date/Reason Jun 19, 2017 at 10:20 Spinal Stenosis. Discharge Date/Disposition Jun 21, 2017 Home Diagnosis Principal Diagnosis: lumbar spinal stenosis Procedure(s) Performed posterior lumbar decompression/fusion Medication Reconciliation New Medications: Oxycodone HCl (Oxycodone HCl) 5 Mg Tab 5-10 MG PO Q4H PRN for Moderate - severe pain for 30 Days, #60 TAB Continued Medications: Amlodipine (Norvasc) 5 Mg Tab 5 MG PO QAM, TAB Amphetamine-Dextroamphetamine 10MG (Adderall 10MG) 1 Tab Tab 1 TAB PO BID for 30 Days, #60 TAB USUALLY TAKES 0.5 TAB AT HS B-Complex Vitamins (Vitamin B Complex) 1 Tab Tab 1 TAB PO QAM Citalopram Hydrobromide (Celexa) 10 Mg Tab 10 MG PO HS, TAB Citalopram Hydrobromide (Celexa) 20 Mg Tab 20 MG PO QAM, TAB Clonazepam (Klonopin) 1 Mg Tab 1 MG PO QAM, TAB Dicyclomine Hcl (Dicyclomine Hcl) 10 Mg Cap 1 CAP PO Q6 PRN for Nausea for 30 Days, #120 CAP 3 Refills prn nausea or abdominal cramping Duloxetine HCl (Cymbalta) 20 Mg Cap 1 CAP PO QPM for 30 Days, CAP Duloxetine Hcl (Cymbalta) 60 Mg Cap 60 MG PO QAM, CAP Hydrocodone/Acetaminophen 5MG/325MG ([place] 5MG/325MG) Tab 1 TABLET PO Q6 PRN for Pain, TAB PRN PAIN Lisinopril (Lisinopril) 10 Mg Tab 1 TAB PO DAILY Lurasidone Hcl (Latuda) 20 Mg Tab 1 TAB PO DAILY Omeprazole (Prilosec) 20 Mg Cap 20 MG PO DAILY, CAP Simvastatin (Simvastatin) 20 Mg Tab 1 TAB PO HS Tamsulosin Hcl (Flomax) 0.4 Mg Cap 0.4 MG PO QAM, CAP [Vitamin B Infusion] () 1 DOSE INJ UD RECEIVES INFUSION FOR A VITAMIN B DEFICIENCY ONCE A MONTH - LAST INFUSION APPROX FEW WEEKS AGO Discontinued Medications: Naproxen (Naprosyn) 500 Mg Tab 500 MG PO BID PRN for Pain, TAB Admission Physical Exam As per Admitting History & Physical. Hospital Course pt had an uneventful hospital course. labs stable. progressed with physical therapy Discharge Instructions ACTIVITY RECOMMENDATIONS: SELF CARE INSTRUCTIONS AFTER THORACIC/LUMBAR FUSIONS 1. You may walk to your tolerance. It is good exercise for your legs and back. Expect some back and intermittent leg aches and pains. 2. You may perform "counter-top" level activities (make a sandwich, maricarmen with a project, etc.). 3. No bending or lifting of more than 10 pounds or back twisting of any nature (roll like a log when turning in bed). 4. You may ride in a car for 20-30 minutes at a time. No driving until after your first visit with your doctor. 5. Frequent changes of position and restricting sitting to 30 minutes at a time will help limit the amount of back spasms and stiffness you may experience. 6. You may discontinue the use of ambulatory aids (cane, crutches, etc.) once your strength and confidence allow. 7. You may air and hydronic balancing technician the shower and let water strike your incision when you arrive home at least once daily. Do not take a tub bath, sit in a hot tub or go into a swimming pool until after your first recheck in the office. SPECIAL CARE INSTRUCTIONS: VERY IMPORTANT TO READ AND REVIEW A. Your surgical incision has been closed with a cosmetic suture under the skin that will dissolve in about 6 weeks. In 14 days, you can use a pair of clean scissors and cut the suture that is left outside of the skin at the ends of your incision. 1. The small skin tapes can be removed 7 days after surgery if they have not fallen off by that point. 2. You may keep the wound open to air as much as possible to promote healing after post-op day number 5 unless told otherwise by your doctor. 3. If you think the wound looks like it is becoming infected (redness or worsening drainage) and/or you are experiencing fever, chill or worsening back pain and muscle spasms, contact the office so that we may evaluate you as soon as possible. B. Complications are uncommon, but please contact us if you have any signs or symptoms of: 1. wound infection (fever higher than 102.5 degrees F, redness, separation of wound, drainage, or increasing pain from the incision) 2. blood clots in legs (pain, swelling, redness and warmth in legs) 3. urinary tract infection (fever higher than 102.5 degrees F, burning upon urination or increased frequency of urination) 4. nerve problems (inability to walk on your toes or heels, numbness, loss of bowel or bladder control) 5. any other symptoms that concern you C. Please call the office at if you have any concerns or questions about your operation or recovery. D. No smoking! Smoking drastically decreases the chance of a solid fusion. E. Do not take any anti-inflammatory medications (Indocin, Advil, Motrin, Aspirin, Naprosyn, etc.) as these may inhibit the chance of a solid fusion. Tylenol is okay to take for pain. MANAGING PAIN AFTER SPINAL SURGERY 1. Narcotic medication is intended for short-term use and will be provided for surgical pain. Surgical pain usually lasts for a period of 4-6 weeks. Narcotic medication includes Percocet, Vicodin, Darvocet, Tylenol #3 or Lortab. 2. Longer-term pain is more appropriately treated with non-narcotic medication such as Tylenol ES. 3. Muscle spasm is not appropriately treated with narcotics. Muscle relaxers such as Soma, Flexeril or Skelaxin can be used along with Tylenol ES. 4. Remember that we all live with some "aches and pains". This is not unusual or uncommon after an injury or as we get older. a. Back pain is expected and may include muscle spasms for 4 to 6 weeks after surgery. The pain should gradually improve. If the pain worsens for no apparent reason, please contact the office. b. Intermittent leg pain may also be experienced and should not be concerned about unless it worsens for no apparent reason. If so, please contact the office. 5. We will provide appropriate medication within the normal guidelines of their prescribed use. We will also be very cautious and aware of potential abuse and extended duration of patients' medication needs. a. Pain medications are for your comfort and to assist with sleep and rest so that the tissue can heal. They are not provided in order to return to normal activity and should not be used through the day. To do so or worsening pain at night can result from ongoing tissue damage and development of tolerance to the prescribed medicine. 6. Please allow 2-3 days to process refills. Prescriptions will not be mailed but must be picked up at the office. FOLLOW UP VISIT: Keep your scheduled follow-up appointment. Any questions, please call the office at . Please refer to the electronic Patient Visit Report (Discharge Instructions) for additional information.
[2017-06-21] MEDS: CITALOPRAM 20 MG TAB PO SCH (08:48)
[2017-06-21] MEDS ORDERED: NICOTINE 21 MG/24 HR TDSY TD SCH (09:00)
[2017-06-21 09:46] VITALS: BP 123/73; PULSE 79; TEMP 36.8; O2SAT 90
[2017-06-21] MEDS ORDERED: GABAPENTIN 600MG Q12H DOSE PO SCH (20:00)
[2017-06-22] MEDS ORDERED: GABAPENTIN 600MG X1 DOSE PO SCH (20:00)
== END 2017-06-21 14:58 | disposition home or self-care (01) | DRG 454 ==
LOC: C.ACU 09:31 → C.3E 10:20 → ENRESERV 15:03
PROVIDERS: ADMIT Orthopaedic Surgery Orthopaedic Surgery of the Spine; ATTEND Orthopaedic Surgery Orthopaedic Surgery of the Spine
PROC: 0SG1071 Fusion of 2 or more Lumbar Vertebral Joints with Autologous Tissue Substitute, Posterior Approach, Posterior Column, Open Approach (ICD-10-PCS; principal; 2017-06-19 11:45)
PROC: 0ST40ZZ Resection of Lumbosacral Disc, Open Approach (ICD-10-PCS; principal; 2017-06-19 11:45)
PROC: 0SG3071 Fusion of Lumbosacral Joint with Autologous Tissue Substitute, Posterior Approach, Posterior Column, Open Approach (ICD-10-PCS; principal; 2017-06-19 11:45)
PROC: 01NB0ZZ Release Lumbar Nerve, Open Approach (ICD-10-PCS; principal; 2017-06-19 11:45)
PROC: 0SG30AJ Fusion of Lumbosacral Joint with Interbody Fusion Device, Posterior Approach, Anterior Column, Open Approach (ICD-10-PCS; principal; 2017-06-19 11:45)
DX: M48.061 Spinal stenosis, lumbar region without neurogenic claudication (principal); E87.1 Hypo-osmolality and hyponatremia; M71.38 Other bursal cyst, other site; I10 Essential (primary) hypertension; E78.5 Hyperlipidemia, unspecified; K58.9 Irritable bowel syndrome, unspecified; K21.9 Gastro-esophageal reflux disease without esophagitis; M19.90 Unspecified osteoarthritis, unspecified site; N40.0 Benign prostatic hyperplasia without lower urinary tract symptoms; F90.9 Attention-deficit hyperactivity disorder, unspecified type; F41.9 Anxiety disorder, unspecified; F10.10 Alcohol abuse, uncomplicated; F31.9 Bipolar disorder, unspecified; F17.210 Nicotine dependence, cigarettes, uncomplicated; Z86.19 Personal history of other infectious and parasitic diseases; Z79.899 Other long term (current) drug therapy